=== PATIENT | male | born 1995 | race Caucasian/White ===

== ENCOUNTER 2023-01-19 17:05 | Emergency (ER) | payer OTHER ==
[~2023-01-19] VITALS: Ht 188 cm; Wt 137.0 kg
[2023-01-19] MEDS ORDERED: FLUOXETINE HCL20 MG PO (17:21)
[2023-01-19] MEDS ORDERED: PREDNISONE50 MG PO (17:34)
[2023-01-19] MEDS ORDERED: AMOX TR-K CLV1 EAC1 PO (17:34)
[2023-01-19 18:12] VITALS: BP 160/81
[2023-01-19 18:44] LABS: INFLUENZA B NAA NEGATIVE (NEGATIVE); RESPIRATORY SYNCYTIAL VIR NAA NEGATIVE (NEGATIVE)
== END 2023-01-19 18:10 | disposition home or self-care (01) ==
LOC: ED 17:05
PROVIDERS: Emergency Medicine
DX: J03.90 Acute tonsillitis, unspecified (principal); F32.A Depression, unspecified; Z11.52 Encounter for screening for COVID-19; Z79.899 Other long term (current) drug therapy
CPT/HCPCS: 87502; 87651; 99283; A9270; C9803; J7512; U0002

== ENCOUNTER 2024-05-26 23:21 | Emergency (ER) | payer OTHER ==
[~2024-05-26] VITALS: Ht 188 cm; Wt 152.0 kg
[~2024-05-26 23:21] MED LIST: AMOX TR-K CLV1 EAC1 PO; FLUOXETINE HCL20 MG PO; PREDNISONE50 MG PO
[2024-05-26] MEDS ORDERED: LACTATED RINGER'S 1,000 ML IV ONE (23:45)
[2024-05-26] MEDS ORDERED: KETOROLAC TROMETHAMINE 30 MG/ML VIAL IV ONE (23:45)
[2024-05-26] MEDS ORDERED: PROCHLORPERAZINE EDISYLATE 10 MG/2 ML VIAL IV ONE (23:45)
[2024-05-26] MEDS ORDERED: diphenhydrAMINE HCL 50 MG/ML VIAL IV ONE (23:45)
[2024-05-27 00:57] VITALS: BP 146/83
== END 2024-05-27 00:50 | disposition home or self-care (01) ==
LOC: ED 23:21
DX: G44.009 Cluster headache syndrome, unspecified, not intractable (principal)
CPT/HCPCS: 96374; 96375; 99283-25; J0780; J1200; J1885; J7121